=== PATIENT | male | born 1960 | race African-American/Black ===

== ENCOUNTER 2016-09-27 06:30 | Emergency (ER) | payer BC ==
[~2016-09-27] VITALS: Ht 200.7 cm; Wt 90.7 kg
[2016-09-27 06:46] VITALS: BP 143/78; PULSE 84; RESP 16; TEMP 98.4; O2SAT 96
[2016-09-27] MEDS ORDERED: KETOROLAC TROMETHAMINE 60 MG/2 ML VIAL IM ONE (07:30)
== END 2016-09-27 07:58 | disposition home or self-care (01) ==
LOC: SED 06:30
DX: M25.532 Pain in left wrist (principal); Z86.718 Personal history of other venous thrombosis and embolism
CPT/HCPCS: 29125; 73110; 99284; J1885

== ENCOUNTER 2017-06-08 07:31 | Emergency (ER) | payer BC ==
[~2017-06-08] VITALS: Ht 200.7 cm; Wt 89.8 kg
[2017-06-08 07:36] VITALS: BP_SYST 163
[2017-06-08 10:34] VITALS: BP_SYST 129
== END 2017-06-08 10:34 | disposition home or self-care (01) ==
LOC: SED 07:31
DX: I73.9 Peripheral vascular disease, unspecified (principal); Z94.0 Kidney transplant status; Z86.718 Personal history of other venous thrombosis and embolism
CPT/HCPCS: 93922; 93971; 99284